=== PATIENT | male | born 1995 | race Caucasian/White ===

== ENCOUNTER 2018-03-25 21:22 | Emergency (ER) | payer OTHER ==
[2018-03-25 21:40] VITALS: BP 160/62
--- NOTE | 2018-03-25 22:19 | RADIOLOGY REPORT (SQ) ---
EXAM DESCRIPTION: ANKLE RIGHT COMPLETE COMPLETED DATE/TIME: 03/25/2018 10:11 pm REASON FOR STUDY: injury, pain COMPARISON: None. NUMBER OF VIEWS: Three views. TECHNIQUE: AP, lateral, and oblique radiographic images acquired of the right ankle. LIMITATIONS: None. FINDINGS: MINERALIZATION: Normal. BONES: No acute fracture or dislocation. No worrisome bone lesions. JOINTS: No effusions. SOFT TISSUES: Moderate lateral soft tissue swelling. OTHER: No other significant finding. IMPRESSION: Soft tissue swelling with no fracture. TECHNICAL DOCUMENTATION: JOB ID: [id number] [employer]- All Rights Reserved Reading location - IP/workstation name: [email or web address]
--- NOTE | 2018-03-25 22:19 | RADIOLOGY REPORT (SQ) ---
EXAM DESCRIPTION: FOOT RIGHT COMPLETE COMPLETED DATE/TIME: 03/25/2018 10:11 pm REASON FOR STUDY: injury, pain COMPARISON: None. NUMBER OF VIEWS: Three views. TECHNIQUE: AP, lateral and oblique radiographic images acquired of the right foot. LIMITATIONS: None. FINDINGS: MINERALIZATION: Normal. BONES: No acute fracture or dislocation. No worrisome bone lesions. JOINTS: No effusions. SOFT TISSUES: No soft tissue swelling. No foreign body. OTHER: No other significant finding. IMPRESSION: NEGATIVE STUDY OF THE RIGHT FOOT. NO RADIOGRAPHIC EVIDENCE OF ACUTE INJURY. TECHNICAL DOCUMENTATION: JOB ID: [id number] [email or web address]- All Rights Reserved Reading location - IP/workstation name: [email or web address]
--- NOTE | 2018-03-25 23:31 | ER Document Report ---
HPI - HPI Pain Level: 4 Context: Patient is a 22-year-old male who presents emergency department with a right ankle sprain asking for second opinion and possible MRI. Patient states that he is at PT this morning and rolled his ankle in a ditch. He states that he went to [facility] had an x-ray done told that he has an ankle sprain and to follow- up with her sports medicine team on . He was told at that visit he possibly has small tears in ligaments and his ankle and that he wanted an MRI to evaluate this injury further They came to [place] for second opinion. Patient states that he has been elevating it and icing it and taking naproxen. Past Medical History - Social History Smoking Status: Never Smoker Family History: Reviewed & Not Pertinent Vertical Provider Document - CONSTITUTIONAL Agree With Documented VS: Yes Notes: PHYSICAL EXAM GENERAL: Alert, interacts well. HEAD: Normocephalic, atraumatic. EXTREMITIES: Moves all 4 extremities spontaneously. Lateral soft tissue swelling with full range of motion, dorsalis pedis pulses 2/4 bilaterally. No cyanosis. Capillary refill less than 2 seconds in bilateral lower extremity digits. Sharp to dull sensation intact. NEUROLOGICAL: Alert and oriented x4. Normal speech. PSYCH: Normal affect, normal mood. SKIN: Warm, dry, normal turgor. No rashes or lesions noted. - INFECTION CONTROL TRAVEL OUTSIDE OF THE [place] IN LAST 30 DAYS: No Course - Re-evaluation Re-evalutation: 03/25/18 23:29 No evidence of a septic joint, gout flare, dislocation, or fracture on exam and imaging. Vitals wnl. At this time, I do not see an indication for labs or further imaging. Will discharge with conservative measures, return precautions, and follow-up recommendations. - Vital Signs Vital signs: Temp Pulse Resp BP Pulse Ox 98.5 F 75 18 160/62 H 97 03/25/18 21:38 03/25/18 21:38 03/25/18 21:38 03/25/18 21:38 03/25/18 21:38 Discharge - Discharge Clinical Impression: Ankle injury Qualifiers: Encounter type: initial encounter Laterality: right Qualified Code(s): S99.911A - Unspecified injury of right ankle, initial encounter Condition: Good Disposition: HOME, SELF-CARE Instructions: [facility] & Elevation ([facility]), Use of Crutches ([facility]), Sprained Ankle ([facility] ) Additional Instructions: Please follow-up with orthopedist listed on your discharge paperwork. Referrals: FLACO DE SANTIAGO MD [ACTIVE STAFF] - 04/07/18 (if symptoms do not improve)
== END 2018-03-25 23:58 | disposition home or self-care (01) ==
LOC: ER 21:22
DX: S93.401A Sprain of unspecified ligament of right ankle, initial encounter (principal); X50.0XXA Overexertion from strenuous movement or load, initial encounter
CPT/HCPCS: 99283